=== PATIENT | female | born 1985 | race Caucasian/White ===

== ENCOUNTER 2023-11-16 13:11 | Emergency (ER) | payer SELFPAY ==
[~2023-11-16] VITALS: Ht 175.3 cm; Wt 68.0 kg
[2023-11-16 13:42] VITALS: PULSE 66; RESP 17; TEMP 98.3; O2SAT 100
== END 2023-11-16 14:21 | disposition home or self-care (01) ==
LOC: FSED 13:27
DX: S61.210A Laceration without foreign body of right index finger without damage to nail, initial encounter (principal); W26.8XXA Contact with other sharp object(s), not elsewhere classified, initial encounter; Y93.89 Activity, other specified; F17.210 Nicotine dependence, cigarettes, uncomplicated
CPT/HCPCS: 99282